=== PATIENT | male | born 1940 | race Caucasian/White ===

== ENCOUNTER 2018-06-29 07:34 | Inpatient (IN) ==
--- NOTE | 2018-06-05 16:32 | PAT Medication Instructions ---
Medication Instructions Date of Service June 05, 2018 Home Medications Aspir-81 81 mg PO QAM colchicine 0.6 mg PO QAM colestipol 1 g PO BID esomeprazole magnesium 40 mg PO QAM etodolac 400 mg PO BID gemfibrozil 1,200 mg PO HS ibuprofen 200 mg PO QID PRN telmisartan 40 mg PO QAM umeclidinium-vilanterol [Anoro Ellipta] 1 inh INHALATION QAM ASK your surgeon for instructions colchicine 0.6 mg PO QAM etodolac 400 mg PO BID ibuprofen 200 mg PO QID PRN STOP taking 48 hours before surgery colestipol 1 g PO BID gemfibrozil 1,200 mg PO HS DO NOT take the morning of surgery telmisartan 40 mg PO QAM Take morning of surgery With a small sip of water, OTHERWISE NOTHING TO EAT OR DRINK AFTER MIDNIGHT: Aspir-81 81 mg PO QAM esomeprazole magnesium 40 mg PO QAM umeclidinium-vilanterol [Anoro Ellipta] 1 inh INHALATION QAM Other Notes If you have any questions please call us at [phone] or [phone] or [phone] or [phone]
--- NOTE | 2018-06-08 10:49 | Anesthesiology Consultation ---
Date of Service June 08, 2018 Assessment & Plan (1) Encounter for pre-operative examination: Plan: Cardiac clearance 05/26/2018: "Patient considered low to moderate risk for decompression and fusion L4-L5." PCP Clearance 06/18: "Patient is medically cleared for surgery." *PATIENT HAS UROSTOMY BAG, CAUTION WITH POSITIONING FOR SURGERY. Chart Review Chart Review: Acceptable Risk for Surgery and Patient seen in Pre Admission Testing Teaching & Discussion Instructed NPO after midnight before surgery, except medications with 15 cc of water. Medication instructions provided according to the PAT guidelines. History Surgery Operation Date: 06/29/18 07:45 Proposed Procedures p L4-L5 Decompression and Fusion - Connor Brownlee, Height/Weight Height: 5 ft 6.5 in Weight: 104.3 kg Allergies Allergy/AdvReac Type Severity Reaction Status Date / Time No Known Allergies Allergy Unknown Verified 06/01/18 08:27 Medications Home Medications Medication Instructions Recorded Confirmed Last Taken Aspir-81 81 mg PO QAM 06/01/18 06/01/18 Unknown colchicine 0.6 mg PO QAM 06/01/18 06/01/18 Unknown colestipol 1 g PO BID 06/01/18 06/01/18 Unknown esomeprazole magnesium 40 mg PO QAM 06/01/18 06/01/18 Unknown etodolac 400 mg PO BID 06/01/18 06/01/18 Unknown gemfibrozil 1,200 mg PO HS 06/01/18 06/01/18 Unknown ibuprofen 200 mg PO QID PRN 06/01/18 06/01/18 Unknown telmisartan 40 mg PO QAM 06/01/18 06/01/18 Unknown umeclidinium-vilanterol [Anoro 1 inh INHALATION QAM 06/08/18 06/08/18 Unknown Ellipta] Past Medical History Medical History COPD (chronic obstructive pulmonary disease) GERD (gastroesophageal reflux disease) History of bladder cancer History of prostate cancer Hyperlipidemia Hypertension Moderate aortic stenosis By echo 01/2018 Obesity Sleep apnea CPAP HS Past Surgical History Surgical History History of bladder surgery REMOVAL OF BLADDER, CONSTRUCTION OF ILIOCONDUIT History of bowel resection R/T CANCER History of carpal tunnel release of both wrists History of cataract extraction with lens replacement B/L History of foot surgery RIGHT FOOT, 12/13. CURRENTLY STILL WEARING SURGICAL BOOT. History of herniorrhaphy History of prostatectomy History of tonsillectomy History of total shoulder replacement LEFT SHOULDER Past Anesthesia History No Hx of Anesthesia Complications and No Family Hx of Anesthesia Complications ( unknown) History of PONV No Motion Sickness Screening History of Motion Sickness: No Social History Smoking Status: Former smoker Smoking cigarettes per day: h/o 1.5ppd Do You Dip or Chew Tobacco: No Smoking End Date: quit 1975 Hx Alcohol Use: No Alcohol Intake Frequency Comment: 0 Hx Substance Use: No substance use type: does not use Exercise / Class Metabolic Activity III < 4 Walking/Shop/Light housework (+SB with ambulation, denies chest pain) Review of Systems Pt denies any recent chest pain, shortness of breath above baseline, palpitations, cough, fever or URI. Physical Exam Vital Signs BP: 138/79 P: 81bpm SPO2: 95% RA T: 98.2 F R: 20 Constitutional + obese ENMT Mouth: + dentures (wears full upper, has two meal posts for bottom denture but does not wear teeth) and + edentulous Thyromental Distance: > or= 3.5 Finger Breadths (3.5) Mallampati Class: III Neck + thick neck; neck extension not limited Respiratory Auscultation: lungs clear to auscultation bilaterally; no rales, no rhonchi and no wheezes Cardiovascular Rate/Rhythm: regular rate and regular rhythm Heart Sounds: + murmur (II/ systolic ejection murmur) Testing Electrocardiogram Date: 05/26/18 Findings: + NSR @ (85) Chest X-Ray Date: 06/08/18 Findings: + NAD Echocardiogram Date: 02/20/18 EF: 55-60% Normal left ventricular wall thickness. Normal wall motion. Normal left ventricular systolic function. There is trace AI, MR, mild to moderate tricuspid regurgitation, moderate aortic stenosis. AV mean gradient 15 mmHg. ALEXANDER 1.38 cm. Mild pulmonary hypertension with estimated PASP 35-40 mmHg. Stress Test Date: 02/17/17 Based upon EKG criteria, this test is negative. Based on the nuclear imaging findings there is apical ischemia and fixed inferior wall defect likely related to diaphragm attenuation defect. Study is abnormal. It has changed from previous studies. (subsequent cath as below) Cardiac Catheterization Date: 03/03/17 EF 45-50% Minimal coronary artery disease. Mildly reduced systolic function. Mild transaortic valve gradient. Laboratory Results 06/08/18 11:26 06/08/18 11: Blood Type O Positive 06/08/18 11: Antibody Screen NEGATIVE 06/08/18 11: PT 10.3 Seconds (9.0-12.0) 06/08/18: INR 1.0 (0.9-1.1) 06/08/18 11: APTT 25.0 Seconds (21.0-31.0) 06/08/18 11: Urine Color Dark Yellow 06/08/18 Unknown Urine Appearance Clear (Clear) 06/08/18 Unknown Urine pH 8.0 (4.5-7.5) H 06/08/18 Unknown Ur Specific [place] 1.012 (1.000-1.030) 06/08/18 Unknown Urine Protein Negative (Negative) 06/08/18 Unknown Urine Glucose (UA) Negative (Negative) 06/08/18 Unknown Urine Ketones Negative (Negative) 06/08/18 Unknown Urine Nitrite Positive (Negative) H 06/08/18 Unknown Ur Leukocyte Esterase 2+ (Negative) H 06/08/18 Unknown Urine WBC (Auto) >30 /hpf (0-5) H 06/08/18 Unknown Urine RBC (Auto) 0-4 /hpf (0-4) 06/08/18 Unknown U Hyaline Cast (Auto) 1-5 /lpf (0-5) 06/08/18 Unknown U Epithel Cells (Auto) 5-10 /lpf (0-5) H 06/08/18 Unknown Urine Bacteria (Auto) 4+ (Negative) H 06/08/18 Unknown 06/08/18 Unknown Urine Culture - Final Urine,Clean Catch Klebsiella pneumoniae Providencia rettgeri *LABS HAVE BEEN REVIEWED BY PCP, KNOWN PANCYTOPENIA.
--- NOTE | 2018-06-08 12:03 | XRay Report ---
XR chest Pre-admission PA/Lat CLINICAL HISTORY: pat preoperative evaluation COMPARISON STUDY: No previous studies for comparison. FINDINGS: The bones soft tissues and hemidiaphragms are normal. The cardiomediastinal silhouette is n ormal. The lungs are clear. The pulmonary vasculature is normal. IMPRESSION: Negative chest. The above report was generated using voice recognition software. It may contain grammatical, syntax or spelling errors. Electronically signed by: Von Eduardo M.D. 06/08/2018 12:01 PM
[2018-06-08 12:24] LABS: BUN Creatinine Ratio 16.3 (10-20); Calcium 8.9 mg/dl (8.5-10.1); Est GFR (African American) 55.9; Est GFR (Non-African American) 48.2; Potassium 5.1 mmol/L (3.5-5.1)
[2018-06-08 12:27] LABS: Prothrombin Time 10.3 Seconds (9.0-12.0)
[2018-06-08 12:40] LABS: Hematocrit (blood only) 33.5 % (42-52); Hemoglobin 10.8 g/dL (14.0-18.0); Mean Corpuscular Hgb Conc 32.2 g/dL (32-36); Mean Corpuscular Volume 96.5 fL (80-100); Mean Platelet Volume 10.1 fL (7.4-10.4); Platelet Count 122 K/uL (130-400); RDW Coefficient of Variation 14.2 % (11.5-14.5); RDW Standard Deviation 49.3 fL (36.4-46.3); Red Blood Count 3.47 M/uL (4.7-6.1); White Blood Count 1.98 K/uL (4.8-10.8)
[2018-06-08 12:41] LABS: Basophils # (auto) 0.02 K/uL (0-0.2); Eosinophils # (auto) 0.16 K/uL (0-0.5); Eosinophils % (auto) 8.1 %; Lymphocytes # (auto) 0.78 K/uL (1.2-3.4); Lymphocytes % (auto) 39.4 %; Monocytes # (auto) 0.16 K/uL (0.11-0.59); Monocytes % (auto) 8.1 %; Neutrophils # (auto) 0.86 K/uL (1.4-6.5); Neutrophils % (auto) 43.4 %
[2018-06-08 16:41] LABS: Appearance Urine Clear (Clear); Bacteria Urine Automated 4+ (Negative); Bilirubin Urine Negative (Negative); Blood Urine Negative (Negative); Color Urine Dark Yellow; Glucose Urine UA Negative (Negative); Ketones Urine Negative (Negative); Leukocyte Esterase Urine 2+ (Negative); Nitrite Urine Positive (Negative); Protein Urine Negative (Negative); RBC Urine Automated 0-4 /hpf (0-4); Specific Gravity Urine 1.012 (1.000-1.030); Urobilinogen Urine Negative (Negative); WBC Urine Automated >30 /hpf (0-5)
[~2018-06-29 07:34] MED LIST: ACETAMINOPHEN 500 MG TAB PO SCH; CEFAZOLIN 2000MG 2,000 MG/15 ML SYR IV SCH; CeleBREX 200 MG CAP PO SCH; GABAPENTIN 300 MG PO SCH; LR 15ML/HR IV SCH
[2018-06-29] MEDS ORDERED: HYDROmorphone INJ 2 MG/ML SYR/VIAL ONE ×2 (08:14→10:33)
[2018-06-29] MEDS ORDERED: fentaNYL citrate 100 MCG/2 ML VIAL ONE ×3 (08:14→10:21)
[2018-06-29] MEDS ORDERED: MIDAZOLAM HCL 1 MG/ML 2ML VIAL ONE (08:14)
[2018-06-29] MEDS ORDERED: ROCURONIUM BROMIDE 10 MG/ML 5 ML VIAL ONE ×2 (08:19→10:34)
[2018-06-29] MEDS ORDERED: LIDOCAINE HCL 2% 2 ML VIAL/AMP(20MG/ML) INFIL ONE ×2 (08:19→10:34)
[2018-06-29] MEDS ORDERED: PROPOFOL IV EMULSION 10 MG/ML 20 ML VIAL IV ONE ×2 (08:19→10:33)
[2018-06-29] MEDS ORDERED: NEOSTIGMINE METHYLSULFATE 1 MG/ML 10ML VIAL ONE (08:19)
[2018-06-29] MEDS ORDERED: ONDANSETRON INJ 2 MG/ML 2 ML VIAL ONE ×2 (08:19→10:33)
[2018-06-29] MEDS ORDERED: GLYCOPYRROLATE 0.2 MG/ML VIAL ONE ×2 (08:19→10:33)
[2018-06-29] MEDS ORDERED: DEXAMETHASONE SOD INJ 4 MG/ML VIAL ONE ×2 (08:19→10:33)
[2018-06-29] MEDS ORDERED: ONDANSETRON INJ 2 MG/ML 2 ML VIAL IV PRN ×2 (09:15→13:13)
[2018-06-29] MEDS ORDERED: ATROPINE SULFATE 0.1 MG/ML 10ML SYR IV PRN (09:15)
[2018-06-29] MEDS ORDERED: LABETALOL HCL IV 5 MG/ML 20ML IV PRN (09:15)
[2018-06-29] MEDS ORDERED: HYDROmorphone INJ 1 MG/ML SYRINGE IV PRN (09:15)
--- NOTE | 2018-06-29 09:22 | History & Physical Bridge Note ---
Date of Service June 29, 2018 History & Physical Bridge Note I have examined the patient, reviewed the History & Physical and in the interval since the performance of the History & Physical I have noted the following changes of clinical significance: no changes noted
--- NOTE | 2018-06-29 09:23 | History & Physical Report ---
Date of Service June 29, 2018 Assessment & Plan (1) Neurogenic claudication due to lumbar spinal stenosis: Decompression and fusion L4-5 Present on Admission?: Yes History of Present Illness Chief Complaint: Back and leg pain Primary Care Provider: NO PCP This is a 78-year-old male well-known to us that presents with chronic persistent back and leg pain. After failing extensive course of nonoperative care is here for surgical intervention. Allergies Allergy/AdvReac Type Severity Reaction Status Date / Time No Known Allergies Allergy Unknown Verified 06/29/18 07:58 Home Medications Home Medications Medication Instructions Recorded Confirmed Type aspirin 81 mg PO DAILY 06/01/18 06/29/18 History colestipol 1 g PO BID 06/01/18 06/29/18 History etodolac 400 mg PO DAILY 06/01/18 06/29/18 History gemfibrozil 1,200 mg PO BID 06/01/18 06/29/18 History ibuprofen 800 mg PO QID PRN 06/01/18 06/29/18 History telmisartan 40 mg PO QAM 06/01/18 06/29/18 History allopurinol 100 mg PO DAILY 06/29/18 06/29/18 History atorvastatin 10 mg PO PM 06/29/18 06/29/18 History melatonin 6 mg PO HS PRN 06/29/18 06/29/18 History metoprolol succinate [Toprol XL] 50 mg PO QAM 06/29/18 06/29/18 History pantoprazole [Protonix] 40 mg PO DAILY 06/29/18 06/29/18 History sennosides-docusate sodium [Senna 1 tab PO QID PRN 06/29/18 06/29/18 History Plus] terazosin 5 mg PO DAILY 06/29/18 06/29/18 History tramadol [Ultram] 50 mg PO Q6H PRN 06/29/18 06/29/18 History Past Med/Surg History Social History Preferred Language: Bulgarian Communication Ability: Effective Orthopaedic Nurse Required: No Beliefs That Will Affect Care: None Current Living Situation: Spouse Other Information That Helps Us Care for You: No Feels Safe at Home: Yes Safety Concerns: Feels Safe At This Time Smoking Status: Former smoker Hx Alcohol Use: No Hx Substance Use: No Physical Exam Vital Signs (Past 24 Hours): Last Vital Signs Temp 37.2 C 06/29/18 08:00 Pulse 96 H 06/29/18 08:00 Resp 20 06/29/18 08:00 BP 149/83 H 06/29/18 08:00 Pulse Ox 95 06/29/18 08:00 Results & Data Medications Administered Acetaminophen (Tylenol) 1,000 mg PO PREOP CARIDAD Stop: 06/29/18 18:00 Last Admin: 06/29/18 08:43 Dose: 1,000 mg Documented by: [id number] Celecoxib (Celebrex) 200 mg PO PREOP CARIDAD Stop: 06/29/18 18:00 Last Admin: 06/29/18 08:43 Dose: 200 mg Documented by: [id number] Gabapentin (Neurontin) 300 mg PO PREOP CARIDAD Stop: 06/29/18 18:00 Last Admin: 06/29/18 08:43 Dose: 300 mg Documented by: [id number] Lactated Ringer's (Lr) 1,000 mls @ 15 mls/hr IV .Q24H CARIDAD Stop: 06/30/18 05:59 Last Admin: 06/29/18 08:05 Dose: 15 mls/hr Documented by: [id number]
[2018-06-29] MEDS ORDERED: BUPIVACAINE/EPINEPHRINE 0.5% MPF 1:200,000 30 ML VIAL ONE (09:32)
[2018-06-29] MEDS ORDERED: BACITRACIN INJ 50,000 UNIT VIAL ONE (09:32)
[2018-06-29] MEDS ORDERED: LARYING-O-JET KIT (LTA) ONE ×2 (10:22→10:33)
[2018-06-29] MEDS ORDERED: ePHEDrine sulfate 50 MG/ML SYR ONE (11:01)
[2018-06-29] MEDS ORDERED: PHENYLEPHRINE 100MCG/ML 5ML SYR ONE (11:01)
[2018-06-29] MEDS ORDERED: VOLUVEN IN NSS IV ONE (11:04)
[2018-06-29] MEDS ORDERED: FLOSEAL HEMOSTATIC MATRIX 10ML TOP ONE (11:15)
[2018-06-29] MEDS ORDERED: KETOROLAC 30 MG/ML VIAL ONE (11:29)
--- NOTE | 2018-06-29 11:38 | Operative Report ---
Post Operative Report Pre & Post Diagnosis Operation Date: 06/29/18 09:35 Pre-Op Diagnosis: Neurogenic claudication due to lumbar spinal stenosis Post-Op Diagnosis: Neurogenic claudication due to lumbar spinal stenosis Procedure Operation Date: 06/29/18 09:35 Actual Procedures #1 lumbar decompression medial facetectomy foraminotomies L3 6258 #2 posterior spinal fusion L4-5 and #3 placement post transportation L4 fiber #4 interbody fusion L4-5. #5 placement of titanium 12 x 26 mm cage at L4-5 #6 placement of local autograft in the posterior lateral gutters. #7 placement infuse collagen sponge combined with master graft in the posterior lateral gutters and ostium of interbody space. Surgeon Connor Brownlee, DO Sas Administrator None Estimated Blood Loss 475 Findings Consistent with Post-Op Diagnosis Specimens None Description of Procedure Patient was met with preoperatively case discussed all questions addressed. After informed consent obtained patient was taken to the operative suite and underwent intubation and placed in a prone position on the Timur table on top of the Topher frame. All bony prominences well-padded was inspected to ensure no external pressure placed upon the peer this point number spine was prepped and draped in a normal sterile fashion. Sharp dissection with the assistance of Bovie cautery was performed down to and exposing the lamina and transverse processes of L4 and L5 bilaterally. From a calcified fashion obliquely flattening of L4 partial laminectomy L3 was performed including bilateral medial facetectomies and foraminotomies addressing severe stenosis. Pedicle screws were then placed in L4 and L5 bilaterally with assistance of fluoroscopy and blood pressures were placed. Through a transforaminal approach on the left complete discectomy was performed in pledget created to subcortical bleeding bone and a 12 x 26 mm titanium cage filled with osteo-amp bone graft at the position. The rods were then locked into final position bilaterally. The transverse processes of L4 and L5 #2 subcortical bleeding bone. Infuse collagen sponge master graft and local autograft placed in the posterior lateral gutters. 51 SUPRIYA drain inserted. Incision was then closed with 1 Vicryl in the fascia 2-0 Vicryl substantially and 4-0 Monocryl for final skin closure. Steri-Strips traditional history patient with a date by history in addition. I attest to the content of the Intraoperative Record and any orders documented therein. Any exceptions are noted below.
--- NOTE | 2018-06-29 12:12 | Fluoroscopy Report ---
LUMBAR SPINE, INTRAOPERATIVE FLUOROSCOPY HISTORY: L4-L5 decompression and fusion. FLUOROSCOPY TIME: 17 seconds. FINDINGS: Intraoperative fluoroscopy was provided for the lumbar spine. 2 fluoroscopic spot images we re obtained. Posterior decompression fusion at L4-L5 with pedicle screws and rods. The hardware appea rs intact. IMPRESSION: Fluoroscopy provided for a L4-L5 posterior decompression and fusion. Electronically signed by: Gigi Ramsey M.D. 06/29/2018 12:11 PM
--- NOTE | 2018-06-29 12:38 | Anesthesiology Progress Note ---
Date of Service June 29, 2018 Anesthesia Post Procedure Vital Signs Vital Signs: Temp Pulse Pulse Resp BP Pulse Ox 06/29/18 12:35 36.2 C L 86 15 134/69 96 06/29/18 12:25 87 15 140/77 97 06/29/18 12:15 96 H 20 147/69 H 97 06/29/18 12:05 97 H 15 142/71 H 98 06/29/18 11:55 36.0 C L 96 H 14 134/74 97 06/29/18 08:00 37.2 C 96 H 20 149/83 H 95 Pain Intensity Lower Medial Back: Pain Intensity: 4 Notes Mental Status: alert / awake / arousable Patient Amnestic to Procedure: Yes Nausea / Vomiting: adequately controlled Pain: adequately controlled Airway Patency, RR, SpO2: stable & adequate BP & HR: stable & adequate Hydration State: stable & adequate Anesthetic Complications: no major complications apparent
[2018-06-29] MEDS ORDERED: LORazepam 0.5 MG/1 ML VIAL IV PRN (13:13)
[2018-06-29] MEDS ORDERED: LORazepam 0.5 MG TAB PO PRN (13:13)
[2018-06-29] MEDS ORDERED: KETOROLAC TROMETHAMINE 15 MG/ML VIAL IV SCH (13:13)
[2018-06-29] MEDS ORDERED: HYDROmorphone INJ 0.5 MG/0.5 ML SYR IV PRN (13:13)
[2018-06-29] MEDS ORDERED: TRAMADOL HCL 50 MG TABLET PO PRN ×2 (13:13)
[2018-06-29] MEDS ORDERED: DOCUSATE SODIUM/SENNA 50/8.6MG TAB PO PRN (13:13)
[2018-06-29] MEDS ORDERED: PROMETHAZINE HCL 12.5 MG in SODIUM CHLORIDE 0.9% 50 ML IV PRN (13:13)
[2018-06-29] MEDS ORDERED: DO NOT ADMINISTER PNEUMOCOCCAL VACCINE PRN (13:13)
[2018-06-29] MEDS ORDERED: SOD PHOSPHATE/SOD BIPHOSPHATE ENEMA 132 ML BTL PR PRN (13:13)
[2018-06-29] MEDS ORDERED: ALUMINUM/MAGNESIUM SUSP 30 ML UDC PO PRN (13:13)
[2018-06-29] MEDS ORDERED: NON-FORMULARY MEDICATION (Melatonin 6 MG) PO PRN (13:13)
[2018-06-29] MEDS ORDERED: DO NOT ADMINISTER FLU VACCINE PRN (13:13)
[2018-06-29] MEDS ORDERED: MAGNESIUM HYDROXIDE SUSP 30 ML UDC PO PRN (13:13)
[2018-06-29] MEDS ORDERED: ACETAMINOPHEN 1,000 MG/100 ML VIAL IV PRN (13:13)
[2018-06-29] MEDS ORDERED: BISACODYL 10 MG SUPP PR PRN (13:13)
[2018-06-29] MEDS ORDERED: ACETAMINOPHEN 500 MG TAB PO PRN (13:13)
[2018-06-29] MEDS ORDERED: METOCLOPRAMIDE HCL INJ 5 MG/ML 2 ML VIAL IV PRN (13:13)
[2018-06-29] MEDS ORDERED: ONDANSETRON 4 MG TAB PO PRN (13:13)
[2018-06-29] MEDS ORDERED: FAMOTIDINE 20 MG TAB PO PRN (13:13)
[2018-06-29] MEDS ORDERED: ESMOLOL HCL INJ 10 MG/ML 10ML VIAL IV ONE (13:38)
[2018-06-29] MEDS ORDERED: KETOROLAC 0.5% OP SOLN 5 ML BTL OP PRN (13:50)
--- NOTE | 2018-06-29 14:00 | Anesthesiology Progress Note ---
Date of Service June 29, 2018 called after patient on floor for a while that his right eye feels scratchy. Eye is not red or tearing and there does no appear to be any lash or other foreign body in it by visual exam. Will give him ofloxacin and toradol drops to be used prn while bothering him. Told him to let us know if still bothering him after a couple days. Anesthesia Post Procedure Vital Signs Vital Signs: Temp Pulse Pulse Pulse Pulse Resp BP 06/29/18 13:52 77 16 147/69 H 06/29/18 13:15 81 16 144/74 H 06/29/18 12:50 36.4 C L 84 16 131/64 06/29/18 12:35 36.2 C L 86 15 134/69 06/29/18 12:25 87 15 140/77 06/29/18 12:15 96 H 20 147/69 H 06/29/18 12:05 97 H 15 142/71 H 06/29/18 11:55 36.0 C L 96 H 14 134/74 06/29/18 08:00 37.2 C 96 H 20 149/83 H Pulse Ox 06/29/18 13:52 97 06/29/18 13:15 96 06/29/18 12:50 96 06/29/18 12:35 96 06/29/18 12:25 97 06/29/18 12:15 97 06/29/18 12:05 98 06/29/18 11:55 97 06/29/18 08:00 95 Pain Intensity Lower Medial Back: Pain Intensity: 4
[2018-06-29] MEDS: SODIUM CHLORIDE 0.9% 1000ML 1,000 ML IV SCH ×2 (14:55→19:10)
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
[2018-06-29] MEDS ORDERED: ALBUT/IPRATROP 3MG/0.5MG NEB 3 ML VIAL NEB PRN (16:08)
[2018-06-29] MEDS: OFLOXACIN 0.3% OP SOLN 5 ML BTL OP SCH ×2 (16:19→20:08)
[2018-06-29] MEDS: KETOROLAC TROMETHAMINE 15 MG/ML VIAL IV SCH ×2 (17:35→23:57)
[2018-06-29 18:58] LABS: Hemoglobin 9.1 g/dL (14.0-18.0); Mean Corpuscular Hgb Conc 32.5 g/dL (32-36); Mean Corpuscular Volume 97.2 fL (80-100); RDW Coefficient of Variation 14.8 % (11.5-14.5); RDW Standard Deviation 51.8 fL (36.4-46.3); Red Blood Count 2.88 M/uL (4.7-6.1); White Blood Count 2.71 K/uL (4.8-10.8)
[2018-06-29 19:41] LABS: Mean Platelet Volume 10.5 fL (7.4-10.4); Platelet Count 98 K/uL (130-400)
[2018-06-29 19:42] LABS: Basophils # (auto) 0.01 K/uL (0-0.2); Basophils % (auto) 0.4 %; Immature Granulocytes # (auto) 0.02 K/uL (0.00-0.02); Immature Granulocytes % (auto) 0.7 %; Lymphocytes # (auto) 0.27 K/uL (1.2-3.4); Monocytes # (auto) 0.02 K/uL (0.11-0.59); Monocytes % (auto) 0.7 %; Neutrophils # (auto) 2.39 K/uL (1.4-6.5); Neutrophils % (auto) 88.2 %; Platelet Estimate Decreased (Normal)
[2018-06-29] MEDS: COLESTIPOL HCL 1 GM TAB PO SCH (20:07)
[2018-06-29] MEDS ORDERED: GEMFIBROZIL 600 MG TAB PO SCH (21:00)
[2018-06-29] MEDS: DOCUSATE SODIUM/SENNA 50/8.6MG TAB PO SCH (21:13)
[2018-06-29] MEDS: GEMFIBROZIL 600 MG TAB PO SCH (21:13)
[2018-06-29] MEDS: ATORVASTATIN 10 MG TAB PO SCH (21:13)
[2018-06-29] MEDS ORDERED: COLESTIPOL HCL 1 GM TAB PO SCH (22:00)
[2018-06-30] MEDS: SODIUM CHLORIDE 0.9% 1000ML 1,000 ML IV SCH (02:03)
[2018-06-30 06:21] LABS: Hematocrit (blood only) 24.5 % (42-52); Hemoglobin 8.2 g/dL (14.0-18.0); Mean Corpuscular Hgb Conc 33.5 g/dL (32-36); Mean Corpuscular Volume 96.8 fL (80-100); RDW Coefficient of Variation 14.8 % (11.5-14.5); RDW Standard Deviation 51.4 fL (36.4-46.3); Red Blood Count 2.53 M/uL (4.7-6.1); White Blood Count 3.59 K/uL (4.8-10.8)
[2018-06-30 06:25] LABS: Mean Platelet Volume 9.8 fL (7.4-10.4); Platelet Count 94 K/uL (130-400)
[2018-06-30] MEDS: KETOROLAC TROMETHAMINE 15 MG/ML VIAL IV SCH ×2 (06:28→11:19)
[2018-06-30] MEDS: POLYETHYLENE (MIRALAX) 17 GM PACK PO SCH ×3 (06:28→17:48)
[2018-06-30 06:52] LABS: BUN Creatinine Ratio 22.2 (10-20); Calcium 7.8 mg/dl (8.5-10.1); Creatinine Clr Calc Pharmacy 45.9 ml/min; Potassium 4.5 mmol/L (3.5-5.1)
[2018-06-30 07:04] LABS: Lymphocytes # (auto) 0.41 K/uL (1.2-3.4); Lymphocytes % (auto) 11.4 %; Monocytes # (auto) 0.31 K/uL (0.11-0.59); Monocytes % (auto) 8.6 %; Neutrophils # (auto) 2.87 K/uL (1.4-6.5); Ovalocytes 1+
[2018-06-30] MEDS ORDERED: TELMISARTAN 20 MG TAB PO SCH (09:00)
[2018-06-30] MEDS ORDERED: TELMISARTAN 40 MG TAB PO SCH (09:00)
[2018-06-30] MEDS: ASPIRIN 81 MG ECTAB PO SCH (09:20)
[2018-06-30] MEDS: TERAZOSIN HCL 5 MG CAP PO SCH (09:20)
[2018-06-30] MEDS: GEMFIBROZIL 600 MG TAB PO SCH ×2 (09:21→20:28)
[2018-06-30] MEDS: OFLOXACIN 0.3% OP SOLN 5 ML BTL OP SCH ×4 (09:22→22:02)
[2018-06-30] MEDS: PANTOprazole 40 MG TAB PO SCH (09:23)
[2018-06-30] MEDS: ALLOPURINOL 100 MG TAB PO SCH (09:23)
[2018-06-30] MEDS: METOPROLOL SUCC 50MG EXT REL TAB PO SCH (09:23)
--- NOTE | 2018-06-30 09:44 | Anesthesiology Progress Note ---
Date of Service June 30, 2018 Anesthesia Post Procedure Vital Signs Vital Signs: Temp Pulse Pulse Pulse Resp BP Pulse Ox 06/30/18 07:11 36.8 C 82 18 97/51 L 94 06/30/18 03:50 36.8 C 87 16 111/58 L 96 06/29/18 22:50 36.5 C 86 16 105/57 L 95 06/29/18 19:05 36.8 C 86 16 116/70 93 06/29/18 15:55 36.8 C 90 16 157/78 H 97 06/29/18 15:03 36.4 C L 97 H 16 151/76 H 97 06/29/18 13:52 77 16 147/69 H 97 06/29/18 13:15 81 16 144/74 H 96 06/29/18 12:50 36.4 C L 84 16 131/64 96 06/29/18 12:35 36.2 C L 86 15 134/69 96 06/29/18 12:25 87 15 140/77 97 06/29/18 12:15 96 H 20 147/69 H 97 06/29/18 12:05 97 H 15 142/71 H 98 06/29/18 11:55 36.0 C L 96 H 14 134/74 97 Pain Intensity Lower Medial Back: Pain Intensity: 4 Notes Mental Status: alert / awake / arousable and participated in evaluation Patient Amnestic to Procedure: Yes Nausea / Vomiting: see Notes below Pain: adequately controlled Airway Patency, RR, SpO2: stable & adequate BP & HR: stable & adequate Hydration State: stable & adequate Anesthetic Complications: no major complications apparent and Pt Satisfied with anesthetic care
--- NOTE | 2018-06-30 11:45 | Orthopedic Progress Note ---
Date of Service June 30, 2018 Assessment & Plan (1) Acute blood loss as cause of postoperative anemia: Present on Admission?: No (2) Neurogenic claudication due to lumbar spinal stenosis: Continue physical therapy monitor his SUPRIYA output anticipate discharge home in the next few days. Subjective Patient's back pain is controlled leg symptoms improved. Physical Exam Vital Signs (Past 24 Hours): Last Vital Signs Temp 36.8 C 06/30/18 07:11 Pulse 82 06/30/18 07:11 Resp 18 06/30/18 07:11 BP 97/51 L 06/30/18 07:11 Pulse Ox 94 06/30/18 07:11 Physical Exam: The chair at the bedside. Is good strength testing. Appears comfortable.
--- NOTE | 2018-06-30 12:29 | Hospitalist Progress Note ---
Date of Service June 30, 2018 Assessment & Plan (1) Neurogenic claudication due to lumbar spinal stenosis: s/p L4-5 Decompression and fusion POD #[address] 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 heart failure: -recent cardiac cath demonstrated reduced left ventricular ejection fraction of 45-50% -Patient is currently euvolemic -Continue risk reduction therapy with ASA, high intensity statin, BB, ARB (5) Moderate aortic stenosis: -euvolemic, monitor volume status (6) COPD (chronic obstructive pulmonary disease): -no acute exacerbation -duoneb prn (7) GERD (gastroesophageal reflux disease): -continue PPI -will change diet to minced and moist, monitor for dysphagia -if dysphagia continues would recommend swallow study as inpatient/ ST eval and require further GI evaluation as outpatient (8) Sleep apnea: -Cpap at HS (9) Hyperlipidemia: -Continue outpatient statin and fibrate therapy (10) Hypertension: -patients blood pressure on lower side today -will hold telmisartan, but continue metoprolol with parameters -follow closely and resume ARB as bp allows -follow cbc and bmp regarding volume status (11) CKD (chronic kidney disease) stage 3, GFR 30-59 ml/min: -baseline CR 1.3-1.4 -cr today 1.5, encourage PO intake -repeat bmp in a.m. -avoid nephrotoxic agents (12) Pancytopenia: -noted on pre operative lab work but not noted in STEFANIE Beto documentation -follow CBC and will need outpatient follow up -monitor cbc, transfuse as necessary DVT prophylaxis: SCDS/TEDS Disposition: to be determined by primary team Follow up: with PCP as outpatient Patient was seen and examined in collaboration with Dr. Chavez. Please see addendum Thank you for this consultation. We will follow the patient with you during their hospital stay. You can reach a member of the [facility] Hospitalist Team 18/11 via pager @ [phone]. Supervising Physician Co-Signing Physician Notes Pt was seen and examined. Agreed with Mi HENDRICKSON exam, assessment and plan. MD Scott Subjective Patient was seen and examined in room 323. Follow up S/P lumbar decompression fusion POD #[address] Brownlee. Currently he feels well sitting upright in bedside chair. States he was up ambulating halls with therapy this morning. Complains of incisional back pain but denies any radicular symptoms. Denies fever, chills, sweats, lightheadedness, dizziness, chest pain, shortness of breath, abdominal pain, diarrhea. He is passing flatus and continues to have Anguiano catheter in place. He did have an episode this morning of nausea and emesis x1 secondary to, "food getting stuck." Patient states he has GERD and takes Protonix on a daily basis; however per pt he did not receive it this morning. He is requesting a softer diet so easier for him to swallow. States he follows with his family physician regarding his GERD/Swallowing difficulty. Physical Exam Vital Signs (Past 24 Hours): Last Vital Signs Temp 36.8 C 06/30/18 12:07 Pulse 82 06/30/18 12:07 Resp 18 06/30/18 12:07 BP 106/51 L 06/30/18 12:07 Pulse Ox 96 06/30/18 12:07 Physical Exam: Gen: WD/WN, M, sitting in bedside chair, NAD, A&O x3 HEENT: Normocephalic, atraumatic, conjunctivae moist, sclerae anicteric, mucous membranes moist. Lung: Clear to Auscultation bilaterally, no wheezes/rales/rhonchi Heart: Regular rate, regular rhythm, 2/6 JULIOCESAR noted RUSB with radiation to carotid, no rubs, or gallops Abdomen: +obese protuberant abdomen, Soft, NT, ND +BS x 4 Extremities: No edema, teds in place b/l Skin: Warm, no rash, negative turgor. + Lumbar incision, dressing CDI, SUPRIYA drain with serosanginous drainage : +Anguiano in place Results & Data Laboratory Results Short CBC 06/29/18 06/30/18 Range/Units 18:28 06:09 WBC 2.71 L 3.59 L (4.8-10.8) K/uL Hgb 9.1 L 8.2 L (14.0-18.0) g/dL Hct 28.0 L 24.5 L (42-52) % Plt Count 98 L 94 L (130-400) K/uL BMP 06/30/18 06:09 Sodium 142 Potassium 4.5 Chloride 110 H Carbon Dioxide 24 BUN 33 H Creatinine 1.50 H Glucose 141 H Calcium 7.8 L (1) Sleep apnea Sleep apnea type: obstructive Qualified Code(s): G47.33 - Obstructive sleep apnea (adult) (pediatric) (2) CAD (coronary artery disease) Associated angina: without angina Coronary Disease-Associated Artery/Lesion type: [place] artery [place] vs. transplanted heart: [place] heart Qualified Code(s): I25.10 - Atherosclerotic heart disease of [place] coronary artery without angina pectoris (3) Hyperlipidemia Hyperlipidemia type: unspecified Qualified Code(s): E78.5 - Hyperlipidemia, unspecified (4) COPD (chronic obstructive pulmonary disease) COPD type: unspecified COPD Qualified Code(s): J44.9 - Chronic obstructive pulmonary disease, unspecified (5) GERD (gastroesophageal reflux disease) Esophagitis presence: esophagitis presence not specified Qualified Code(s): K21.9 - Gastro-esophageal reflux disease without esophagitis (6) Hypertension Hypertension type: essential hypertension Qualified Code(s): I10 - Essential (primary) hypertension
[2018-06-30] MEDS: OXYCODONE HCL IR 5 MG TAB (IMMEDIATE RELEASE) PO PRN (20:22)
[2018-06-30] MEDS: ATORVASTATIN 10 MG TAB PO SCH (20:25)
[2018-06-30] MEDS: DOCUSATE SODIUM/SENNA 50/8.6MG TAB PO SCH (20:28)
[2018-07-01] MEDS: COLESTIPOL HCL 1 GM TAB PO SCH (00:12)
[2018-07-01] MEDS: POLYETHYLENE (MIRALAX) 17 GM PACK PO SCH ×3 (00:12→12:47)
[2018-07-01] MEDS: OXYCODONE HCL IR 5 MG TAB (IMMEDIATE RELEASE) PO PRN ×3 (00:27→12:47)
[2018-07-01 05:56] LABS: Hematocrit (blood only) 24.8 % (42-52); Hemoglobin 7.9 g/dL (14.0-18.0); Mean Corpuscular Hgb Conc 31.9 g/dL (32-36); Mean Corpuscular Volume 98.4 fL (80-100); Mean Platelet Volume 10.2 fL (7.4-10.4); Platelet Count 92 K/uL (130-400); RDW Coefficient of Variation 15.2 % (11.5-14.5); RDW Standard Deviation 53.7 fL (36.4-46.3); Red Blood Count 2.52 M/uL (4.7-6.1); White Blood Count 2.92 K/uL (4.8-10.8)
[2018-07-01 06:29] LABS: BUN Creatinine Ratio 20.9 (10-20); Creatinine Clr Calc Pharmacy 40.5 ml/min; Est GFR (African American) 43.8; Est GFR (Non-African American) 37.8; Potassium 4.6 mmol/L (3.5-5.1)
[2018-07-01] MEDS: PANTOprazole 40 MG TAB PO SCH (06:42)
[2018-07-01 06:43] LABS: Estimated Average Glucose 128 mg/dl; Hemoglobin A1C 6.1 % (4.5-5.6)
[2018-07-01] MEDS ORDERED: SODIUM CHLORIDE 0.9% 1000ML 250 ML IV ONE (07:22)
[2018-07-01] MEDS: ASPIRIN 81 MG ECTAB PO SCH (07:47)
[2018-07-01] MEDS: OFLOXACIN 0.3% OP SOLN 5 ML BTL OP SCH ×2 (07:47→12:49)
[2018-07-01] MEDS: GEMFIBROZIL 600 MG TAB PO SCH (07:47)
--- NOTE | 2018-07-01 08:11 | Discharge Summary ---
Date of Service July 01, 2018 Admission HPI Per Admitting Provider This is a 78-year-old male well-known to us that presents with chronic persistent back and leg pain. After failing extensive course of nonoperative care is here for surgical intervention. Principal Diagnosis Lumbar spinal stenosis with neurogenic claudication Discharge Data Allergies Allergy/AdvReac Type Severity Reaction Status Date / Time No Known Allergies Allergy Unknown Verified 06/29/18 07:58 Consultations 06/29/18 13:13 Consult Case Management - Discharge Planning Routine Consult Hospitalist Routine Procedures Performed Operation Date: 06/29/18 09:35 Actual Procedures p L4-L5 Decompression and Interbody Fusion (Not Applicable) - Connor Brownlee DO Ordered Studies 06/29/18 09:35 FL fluoroscopy <1hr Routine FL lumbar spine 2-3V Routine Hospital Course (1) Neurogenic claudication due to lumbar spinal stenosis: Patient underwent lumbar decompression fusion tolerated this well was taken to the orthopedic floor postoperative. Postop and when he is up and ambulating nicely. Leg symptoms improved. He progressed to postop day #2. SUPRIYA drain decreasing appropriately. Subsequently discharged home. Discharge orders and instructions found in the chart for further review. Total Time Total Time Spent Total Time Spent (In Minutes): Not applicable Discharge Plan Discharge Items Patient Disposition: Home - Self-Care Reason For Visit: Spondylolisthesis, Lumbar Region Discharge Diagnosis: lumbar stenosis Discharge Goals: Decrease discomfort Activity: Per 'Additional Instructions' section Non-emergency contact: Primary Care Provider Call non-emergency contact if: you have any medication questions Follow-up/Referrals: PCP,NO [Primary Care Provider] - Diet: Regular Addtl Provider Instructions: ACTIVITY RECOMMENDATIONS: SELF CARE INSTRUCTIONS AFTER THORACIC/LUMBAR FUSIONS 1. You may walk to your tolerance. It is good exercise for your legs and back. Expect some back and intermittent leg aches and pains. 2. You may perform "counter-top" level activities (make a sandwich, angy with a project, etc.). 3. No bending or lifting of more than 10 pounds or back twisting of any nature (roll like a log when turning in bed). 4. You may ride in a car for 20-30 minutes at a time. No driving until after your first visit with your doctor. 5. Frequent changes of position and restricting sitting to 30 minutes at a time will help limit the amount of back spasms and stiffness you may experience. 6. You may discontinue the use of ambulatory aids (cane, crutches, etc.) once your strength and confidence allow. 7. You may senior licensing manager the shower and let water strike your incision when you arrive home at least once daily. Do not take a tub bath, sit in a hot tub or go into a swimming pool until after your first recheck in the office. SPECIAL CARE INSTRUCTIONS: VERY IMPORTANT TO READ AND REVIEW A. Your surgical incision has been closed with a cosmetic suture under the skin that will dissolve in about 6 weeks. In 14 days, you can use a pair of clean scissors and cut the suture that is left outside of the skin at the ends of your incision. 1. The small skin tapes can be removed 7 days after surgery if they have not fallen off by that point. 2. You may keep the wound open to air as much as possible to promote healing after post-op day number 5 unless told otherwise by your doctor. 3. If you think the wound looks like it is becoming infected (redness or worsening drainage) and/or you are experiencing fever, chill or worsening back pain and muscle spasms, contact the office so that we may evaluate you as soon as possible. B. Complications are uncommon, but please contact us if you have any signs or symptoms of: 1. wound infection (fever higher than 102.5 degrees F, redness, separation of wound, drainage, or increasing pain from the incision) 2. blood clots in legs (pain, swelling, redness and warmth in legs) 3. urinary tract infection (fever higher than 102.5 degrees F, burning upon urination or increased frequency of urination) 4. nerve problems (inability to walk on your toes or heels, numbness, loss of bowel or bladder control) 5. any other symptoms that concern you C. Please call the office at if you have any concerns or questions about your operation or recovery. D. No smoking! Smoking drastically decreases the chance of a solid fusion. E. Do not take any anti-inflammatory medications (Indocin, Advil, Motrin, Aspirin, Naprosyn, etc.) as these may inhibit the chance of a solid fusion. Tylenol is okay to take for pain. MANAGING PAIN AFTER SPINAL SURGERY 1. Narcotic medication is intended for short-term use and will be provided for surgical pain. Surgical pain usually lasts for a period of 4-6 weeks. Narcotic medication includes Percocet, Vicodin, Darvocet, Tylenol #3 or Lortab. 2. Longer-term pain is more appropriately treated with non-narcotic medication such as Tylenol ES. 3. Muscle spasm is not appropriately treated with narcotics. Muscle relaxers such as Soma, Flexeril or Skelaxin can be used along with Tylenol ES. 4. Remember that we all live with some "aches and pains". This is not unusual or uncommon after an injury or as we get older. a. Back pain is expected and may include muscle spasms for 4 to 6 weeks after surgery. The pain should gradually improve. If the pain worsens for no apparent reason, please contact the office. b. Intermittent leg pain may also be experienced and should not be concerned about unless it worsens for no apparent reason. If so, please contact the office. 5. We will provide appropriate medication within the normal guidelines of their prescribed use. We will also be very cautious and aware of potential abuse and extended duration of patients' medication needs. a. Pain medications are for your comfort and to assist with sleep and rest so that the tissue can heal. They are not provided in order to return to normal activity and should not be used through the day. To do so or worsening pain at night can result from ongoing tissue damage and development of tolerance to the prescribed medicine. 6. Please allow 2-3 days to process refills. Prescriptions will not be mailed but must be picked up at the office. FOLLOW UP VISIT: Keep your scheduled follow-up appointment. Any questions, please call the office at . Prescriptions: New tramadol 50 mg Tablet 50 mg PO Q4H PRN (Reason: Pain, Moderate) Qty: 30 RF: 0 oxycodone 5 mg Tablet 5 mg PO Q4H PRN (Reason: Pain, Severe) Qty: 30 RF: 0 Continued ibuprofen 200 mg Tablet 800 mg PO QID PRN (Reason: Pain) RF: 0 aspirin 81 mg Tablet,Delayed Release (Dr/Ec) 81 mg PO DAILY RF: 0 gemfibrozil 600 mg Tablet 600 mg PO BID RF: 0 telmisartan 40 mg Tablet 20 mg PO QAM RF: 0 etodolac 400 mg Tablet 400 mg PO DAILY RF: 0 colestipol 1 gram Tablet 2 g PO HS RF: 0 pantoprazole [Protonix] 40 mg Tablet,Delayed Release (Dr/Ec) 40 mg PO DAILY RF: 0 metoprolol succinate [Toprol XL] 50 mg Tablet Extended Release 24 Hr 50 mg PO QAM RF: 0 melatonin 3 mg Tablet 6 mg PO HS PRN (Reason: Sleep) RF: 0 terazosin 5 mg Capsule 5 mg PO DAILY RF: 0 allopurinol 100 mg Tablet 100 mg PO DAILY RF: 0 tramadol [Ultram] 50 mg Tablet 50 mg PO Q6H PRN (Reason: Pain) RF: 0 sennosides-docusate sodium [Senna Plus] 8.6-50 mg Tablet 1 tab PO QID PRN (Reason: Constipation) RF: 0 atorvastatin 10 mg Tablet 10 mg PO PM RF: 0 Stand-Alone Forms: [facility] Discharge Orders: Discharge Order (Routine); Ordered 07/01/18 Ordered By: Connor Brownlee Admission Data Admit Date/Time: 06/29/18 11:48 Attending Provider: Connor Brownlee Admit Provider: Connor Brownlee Primary Care Provider: PCP,NO Other Providers: Nemesio Arce Service: Surgical Services
[2018-07-01] MEDS: METOPROLOL SUCC 50MG EXT REL TAB PO SCH (08:24)
[2018-07-01] MEDS: TERAZOSIN HCL 5 MG CAP PO SCH (08:24)
--- NOTE | 2018-07-01 09:30 | Hospitalist Progress Note ---
Date of Service July 01, 2018 Assessment & Plan (1) Neurogenic claudication due to lumbar spinal stenosis: s/p L4-5 Decompression and fusion 06/29/[address] Hill -pain controlled (2) Acute blood loss anemia: -pre-op H/H 10.8/33.5 -Patient continues to have SUPRIYA drain to the back -Hgb 9.1 on 06/29/18 to 8.2 on 06/30/18 and stabilizing to 7.9 on 07/01/18 (3) CAD (coronary artery disease): -mild CAD per recent cardiac cath 04/2018 -continue risk reduction therapy with ASA, high intensity Statin, BB -on ARB as outpatient (4) Systolic dysfunction without heart failure: -recent cardiac cath demonstrated reduced left ventricular ejection fraction of 45-50% -Continue risk reduction therapy with ASA, high intensity statin, BB -on ARB as outpatient (5) Moderate aortic stenosis: no chest discomfort (6) COPD (chronic obstructive pulmonary disease): -no acute exacerbation (7) GERD (gastroesophageal reflux disease): -continue PPI -Patient also has ostomy bag connected to ramirez tubing (8) Sleep apnea: -Cpap at night (9) Hyperlipidemia: -Continue outpatient statin and fibrate therapy (10) Hypertension: -patients blood pressure controlled on metoprolol while telmisartan held (11) CKD (chronic kidney disease) stage 3, GFR 30-59 ml/min: -baseline CR 1.3-1.4 -creatinine increased from 1.5 to 1.7 -patient had IV fluids on 06/30/18 -07/01/18 : stopped Toradol, avoid NSAIDs if possible Hospitalist medicine project consultant physician discussed patient's follow up clinic plans and he reports that he has primary care doctor follow up in 2 weeks. Hospitalist medicine physician discussed recent elevations in creatinine of acute kidney injury and had ordered 250 cc IV fluid x 1 earlier today and patient confirmed he received the IV fluids. Patient advised to schedule primary care doctor appointment earlier than 2 weeks to recheck labs for renal function (12) Pancytopenia: -noted on pre operative lab work but not noted in [facility] documentation -outpatient follow up for repeat blood work in future DVT prophylaxis: SCDS/TEDS Subjective Patient seen and examined at bedside. We discussed orthopedic service plan to discharge patient to home. Patient continues to have SUPRIYA drain to the back Patient also has ostomy bag connected to ramirez tubing Hospitalist medicine project consultant physician discussed patient's follow up clinic plans and he reports that he has primary care doctor follow up in 2 weeks. Hospitalist medicine physician discussed recent elevations in creatinine of acute kidney injury and had ordered 250 cc IV fluid x 1 earlier today and patient confirmed he received the IV fluids. Patient advised to schedule primary care doctor appointment earlier than 2 weeks to recheck labs for renal function Patient denies vomiting, denies dysuria. Patient denies acute pain. Physical Exam Vital Signs (Past 24 Hours): Last Vital Signs Temp 36.8 C 07/01/18 08:54 Pulse 81 07/01/18 08:54 Resp 18 07/01/18 08:54 BP 112/64 07/01/18 08:54 Pulse Ox 98 07/01/18 08:54 Physical Exam: Gen: no acute distress, sitting on bed HEENT: Normocephalic, atraumatic Lung: Clear to Auscultation bilaterally, no wheezes/rales/rhonchi Heart: Regular rate, regular rhythm Abdomen: bowel sounds present, ostomy bag connected to ramirez tubing Extremities: No edema, SCDs in place bilaterally Back: SUPRIYA drain with serosanginous drainage Neuro: no focal neurological deficits on exam (1) Sleep apnea Sleep apnea type: obstructive Qualified Code(s): G47.33 - Obstructive sleep apnea (adult) (pediatric) (2) CAD (coronary artery disease) Associated angina: without angina Coronary Disease-Associated Artery/Lesion type: [place] artery [place] vs. transplanted heart: [place] heart Qualified Code(s): I25.10 - Atherosclerotic heart disease of [place] coronary artery without angina pectoris (3) Hyperlipidemia Hyperlipidemia type: unspecified Qualified Code(s): E78.5 - Hyperlipidemia, unspecified (4) COPD (chronic obstructive pulmonary disease) COPD type: unspecified COPD Qualified Code(s): J44.9 - Chronic obstructive pulmonary disease, unspecified (5) GERD (gastroesophageal reflux disease) Esophagitis presence: esophagitis presence not specified Qualified Code(s): K21.9 - Gastro-esophageal reflux disease without esophagitis (6) Hypertension Hypertension type: essential hypertension Qualified Code(s): I10 - Essential (primary) hypertension
[2018-07-01] MEDS: ALLOPURINOL 100 MG TAB PO SCH (10:18)
== END 2018-07-01 13:43 | disposition home or self-care (01) | DRG 454 ==
LOC: ASU 07:34 → 3E 11:48
DX: Z79.1 Long term (current) use of non-steroidal anti-inflammatories (NSAID); R13.10 Dysphagia, unspecified; T15.81XA Foreign body in other and multiple parts of external eye, right eye, initial encounter; R11.2 Nausea with vomiting, unspecified; Z68.35 Body mass index [BMI] 35.0-35.9, adult; D62 Acute posthemorrhagic anemia; M48.062 Spinal stenosis, lumbar region with neurogenic claudication; Z96.612 Presence of left artificial shoulder joint; E66.9 Obesity, unspecified; I13.10 Hypertensive heart and chronic kidney disease without heart failure, with stage 1 through stage 4 chronic kidney disease, or unspecified chronic kidney disease; Z79.82 Long term (current) use of aspirin; Z99.89 Dependence on other enabling machines and devices; R73.9 Hyperglycemia, unspecified; I35.0 Nonrheumatic aortic (valve) stenosis; G47.30 Sleep apnea, unspecified; Z87.891 Personal history of nicotine dependence; K21.9 Gastro-esophageal reflux disease without esophagitis; N17.9 Acute kidney failure, unspecified; Z79.899 Other long term (current) drug therapy; X58.XXXA Exposure to other specified factors, initial encounter; E78.5 Hyperlipidemia, unspecified; Z93.6 Other artificial openings of urinary tract status; D61.818 Other pancytopenia; J44.9 Chronic obstructive pulmonary disease, unspecified; Y92.230 Patient room in hospital as the place of occurrence of the external cause; I25.10 Atherosclerotic heart disease of native coronary artery without angina pectoris